=== PATIENT | male | born 1925 | race Caucasian/White ===

== ENCOUNTER → 2017-03-22 | Outpatient (CLI) | payer MEDICARE ==
[~2017-03-22] MED LIST: ASPIR-TRIN325 MG PO; AUGMENTIN 875 M1 TAB PO; FUROSEMIDE20 M1 PO; LIPITOR40 MG PO; LISINOPRIL20 MG PO; VERAPAMIL HCL120 M1 PO; VERELAN SR 240240 MG PO; ZOFRAN4 MG PO
== END ==
LOC: RAD 09:51
DX: M19.071 Primary osteoarthritis, right ankle and foot (principal); M81.8 Other osteoporosis without current pathological fracture; M77.9 Enthesopathy, unspecified; Z76.89 Persons encountering health services in other specified circumstances

== ENCOUNTER → 2017-08-26 | Outpatient (CLI) | payer MEDICARE | END | disposition home or self-care (01) | LOC: CARD 09:12 | DX: I08.2 Rheumatic disorders of both aortic and tricuspid valves (principal) ==